=== PATIENT | female | born 1990 | race Two or more races ===

== ENCOUNTER 2023-09-18 19:00 | Emergency (ER) | payer MEDICAID ==
[~2023-09-18] VITALS: Ht 157.5 cm; Wt 51.3 kg
[2023-09-18] MEDS ORDERED: KETOROLAC TROMETHAMINE 15 MG/ML VIAL ONE (19:27)
[2023-09-18] MEDS ORDERED: KETOROLAC TROMETHAMINE INJ 30 MG/ML VIAL IM ONE (19:30)
[2023-09-18] MEDS ORDERED: IBUP-1955 PO (20:02)
[2023-09-18 20:15] VITALS: BP 133/84; TEMP 98.4; O2SAT 100
== END 2023-09-18 20:13 | disposition home or self-care (01) ==
LOC: ER 19:05
DX: S70.12XA Contusion of left thigh, initial encounter (principal); W20.8XXA Other cause of strike by thrown, projected or falling object, initial encounter; Y93.89 Activity, other specified; Y92.89 Other specified places as the place of occurrence of the external cause; Y99.8 Other external cause status
CPT/HCPCS: 99283; 96372; 73552; J1885